=== PATIENT | female | born 1990 | race Caucasian/White ===

== ENCOUNTER → 2016-12-18 | Outpatient (CLI) | payer OTHER ==
[~2016-12-18] MED LIST: LANSO30 PO/TUBE; OXYC-360 PO; TOPR100T15 PO
== END ==
LOC: HPND 10:02
PROVIDERS: ATTEND Obstetrics & Gynecology
DX: O99.411 Diseases of the circulatory system complicating pregnancy, first trimester (principal); G43.909 Migraine, unspecified, not intractable, without status migrainosus; I42.5 Other restrictive cardiomyopathy; Z87.442 Personal history of urinary calculi; Z3A.00 Weeks of gestation of pregnancy not specified
CPT/HCPCS: 36416; 76813

== ENCOUNTER → 2017-02-20 | Outpatient (CLI) | payer OTHER | LOC: HPND 08:52 | PROVIDERS: ATTEND Obstetrics & Gynecology | DX: O35.2XX0 Maternal care for (suspected) hereditary disease in fetus, not applicable or unspecified (principal) | CPT/HCPCS: 76811; 76825; 76827; 93325 ==

== ENCOUNTER 2017-03-16 00:51 | Emergency (ER) | payer OTHER ==
[2017-03-16] MEDS ORDERED: PERC5TAB12 PO (01:33)
--- NOTE | 2017-03-16 06:24 | MB ---
cc: MICHELET MERINO MD DATE OF ADMISSION: 03/16/2017 ADMITTING DIAGNOSIS: Labor, delivery consultation on Guru Mobley, the patient is a 26-year-old, white female para 1-0-0-1 currently at 25-26 . She has a sore left lower rear molar for about two days. She has seen her dentist, he prescribed amoxicillin. He was reluctant to pull the teeth while she was . She has failed to get relief with OTC meds and presents to the ED evaluation for pain medication. She has no abdominal pain and no other complaints. Examination was pertinent for the floor left, rear most lower molar. The abdomen is gravid, nontender. ASSESSMENT: Assessment is to take 25-26 weeks. PLAN: We will write prescription for Percocet 5, one to two p.o. q.4 h. #40. She is to use Zofran which she has on hand as needed. She is to see the oral surgeon on Saturday for tooth extraction. MD RICH Mcbride/ /1:35 AM /6:19 AM
== END 2017-03-16 01:47 | disposition home or self-care (01) ==
LOC: HOBED 00:51
DX: O99.612 Diseases of the digestive system complicating pregnancy, second trimester (principal); K08.89 Other specified disorders of teeth and supporting structures; Z3A.25 25 weeks gestation of pregnancy
CPT/HCPCS: 99283

== ENCOUNTER → 2017-04-04 | Outpatient (CLI) | payer OTHER ==
[~2017-04-04] MED LIST changes: +PERC5TAB12 PO
== END ==
LOC: HPND 07:37
PROVIDERS: ATTEND Obstetrics & Gynecology
DX: O35.2XX0 Maternal care for (suspected) hereditary disease in fetus, not applicable or unspecified (principal)
CPT/HCPCS: 76816